=== PATIENT | male | born 1975 ===

== ENCOUNTER 2017-09-08 12:29 | Emergency (ER) | payer OTHER ==
[2017-09-08 12:47] VITALS: BP 149/89; PULSE 97; RESP 18; TEMP 98.2; O2SAT 99
--- NOTE | 2017-09-08 13:06 | ED PDOC ---
HPI: General Adult Time Seen by Provider: 09/08/17 12:48 Chief Complaint (Nursing): GI Problem Chief Complaint (Provider): Flu-like symptoms History Per: Patient History/Exam Limitations: no limitations Onset/Duration Of Symptoms: Days (x8 days) Current Symptoms Are (Timing): Still Present Additional Complaint(s): 41 y/o male presents to the emergency department with a complaint of a fever, nausea, abdominal pain, lower back pain, runny nose, dry mouth, and a mild cough x8 days. Patient describes he feeling "something walking around in his mouth and ears." Reports taking Theraflu for 3-4 days and 400 mg of Advil about 45 minutes prior to arrival. Denies diarrhea or vomiting. PMD: Dr. Sue Vazquez MD Past Medical History Reviewed: Historical Data, Nursing Documentation, Vital Signs Vital Signs: Last Vital Signs Temp 98.2 F 09/08/17 12:45 Pulse 97 H 09/08/17 12:45 Resp 18 09/08/17 12:45 BP 149/89 09/08/17 12:45 Pulse Ox 99 09/08/17 13:38 - Medical History PMH: Anxiety, Bipolar Disorder, Depression, Schizophrenia Denies: Diabetes, Hepatitis, HIV, HTN, Chronic Kidney Disease, Seizures, Sexually Transmitted Disease - Surgical History Surgical History: Tonsillectomy - Family History Family History: States: Unknown Family Hx - Social History Current smoker - smoking cessation education provided: Yes (Heavy Smoker > 10 Cigarettes Daily) Alcohol: None Drugs: Denies - Home Medications Home Medications: Ambulatory Orders Medication Instructions Recorded Clonazepam 1 mg PO BID PRN 03/15/15 Eszopiclone [Lunesta] 3 mg PO HS 03/15/15 OLANZapine [ZyPREXA] 10 mg PO HS 03/15/15 chlorproMAZINE [chlorPROMAZINE HCL] 50 mg PO BID 03/15/15 Famotidine [Pepcid] 20 mg PO Q12 #20 tab 04/09/15 Ibuprofen [Motrin] 600 mg PO Q6 #20 tab 09/08/17 Oseltamivir [Tamiflu] 75 mg PO BID 5 Days cap 09/08/17 - Allergies Allergies/Adverse Reactions: Allergies Allergy/AdvReac Type Severity Reaction Status Date / Time divalproex sodium Allergy RASH Verified 11/01/16 10:49 [From Depakote] haloperidol [From Haldol] Allergy RASH Verified 11/01/16 10:49 haloperidol lactate Allergy RASH Verified 11/01/16 10:49 [From Haldol] paliperidone [From Invega] Allergy SHORTNESS Verified 11/01/16 10:49 OF BREATH risperidone [From Risperdal] Allergy RASH Verified 11/01/16 10:49 Review of Systems ROS Statement: Except As Marked, All Systems Reviewed And Found Negative (As per HPI, otherwise negative) Constitutional: Positive for: Fever, Other (Body aches) ENT: Positive for: Nose Discharge, Other (Dry mouth) Respiratory: Positive for: Cough (Mild) Gastrointestinal: Positive for: Nausea, Abdominal Pain. Negative for: Vomiting , Diarrhea Musculoskeletal: Positive for: Back Pain Physical Exam - Reviewed Nursing Documentation Reviewed: Yes Vital Signs Reviewed: Yes - Physical Exam Appears: Positive for: Non-toxic, No Acute Distress Head Exam: Positive for: ATRAUMATIC, NORMAL INSPECTION, NORMOCEPHALIC Skin: Positive for: Normal Color, Warm, Dry ENT: Positive for: Pharyngeal Erythema (Mild). Negative for: Normal ENT Inspection, Tonsillar Exudate, Tonsillar Swelling Cardiovascular/Chest: Positive for: Regular Rate, Rhythm. Negative for: Murmur Respiratory: Positive for: Normal Breath Sounds. Negative for: Accessory Muscle Use, Respiratory Distress Neurologic/Psych: Positive for: Alert, Oriented (x3) - ECG O2 Sat by Pulse Oximetry: 99 (RA) Pulse Ox Interpretation: Normal Medical Decision Making Medical Decision Making: Time: 1300 Initial impression: Flu-like symptoms. Upper Respiratory Infection (URI) Initial plan: --Evaluation Time: 1338 Patient is medically stable, and requires no further treatment in the ED at this time. Patient will be discharged home with Rx for Motrin 600 mg and Tamiflu 75 mg. Counseling was provided and all questions were answered regarding diagnosis and need for follow up with primary care doctor. There is agreement to discharge plan. Return if symptoms persist or worsen. Clinical Impression: Upper Respiratory Infection (URI) and Flu-Like symptoms Scribe Attestation: Documented by Nelida Hilton, acting as a scribe for Trena Dodge PA-C Provider Scribe Attestation: All medical record entries made by the Scribe were at my direction and personally dictated by me. I have reviewed the chart and agree that the record accurately reflects my personal performance of the history, physical exam, medical decision making, and the department course for this patient. I have also personally directed, reviewed, and agree with the discharge instructions and disposition. Disposition - Clinical Impression Clinical Impression: Upper respiratory infection, Flu-like symptoms - Patient ED Disposition Is Patient to be Admitted: No Counseled Patient/Family Regarding: Diagnosis, Need For Followup, Rx Given - Disposition Disposition: Routine/Home Disposition Time: 13:38 Condition: STABLE Prescriptions: Ibuprofen [Motrin] 600 mg PO Q6 #20 tab Oseltamivir [Tamiflu] 75 mg PO BID 5 Days cap Instructions: Upper Respiratory Infection (ED) Forms: [employer] (Nicaraguan)
== END 2017-09-08 13:39 | disposition home or self-care (01) ==
LOC: H.ER 12:29
DX: J06.9 Acute upper respiratory infection, unspecified (principal); R10.9 Unspecified abdominal pain; F17.210 Nicotine dependence, cigarettes, uncomplicated; F20.9 Schizophrenia, unspecified; F31.9 Bipolar disorder, unspecified; F41.9 Anxiety disorder, unspecified

== ENCOUNTER 2017-09-23 10:43 | Emergency (ER) | payer OTHER ==
[2017-09-23 10:52] VITALS: BMI 28.8
[2017-09-23 10:53] VITALS: BP 133/87; TEMP 98.2
--- NOTE | 2017-09-23 11:30 | ED PDOC ---
HPI: General Adult Time Seen by Provider: 09/23/17 11:02 Chief Complaint (Provider): Testicular Pain History Per: Patient History/Exam Limitations: no limitations Onset/Duration Of Symptoms: Other (x 1 month) Current Symptoms Are (Timing): Still Present Additional Complaint(s): Ash is a 42 year old male, with a past medical history of schizophrenia, who presents to the emergency department with right testicular pain associated with "blood blisters on scrotum" for 1 month. Patient states he had aggressive unprotected sex 1 month ago. Denies any dysuria, discharge or abdominal pain. PMD: Provider TBD Past Medical History Reviewed: Historical Data, Nursing Documentation, Vital Signs Vital Signs: Last Vital Signs Temp 98.2 F 09/23/17 10:52 Pulse 110 H 09/23/17 10:52 Resp 20 09/23/17 10:52 BP 133/87 09/23/17 10:52 Pulse Ox 97 09/23/17 11:36 - Medical History PMH: Anxiety, Bipolar Disorder, Depression, Schizophrenia Denies: Diabetes, Hepatitis, HIV, HTN, Chronic Kidney Disease, Seizures, Sexually Transmitted Disease - Surgical History Surgical History: Tonsillectomy - Family History Family History: States: Unknown Family Hx - Home Medications Home Medications: Ambulatory Orders Medication Instructions Recorded Clonazepam 1 mg PO BID PRN 03/15/15 Eszopiclone [Lunesta] 3 mg PO HS 03/15/15 OLANZapine [ZyPREXA] 10 mg PO HS 03/15/15 chlorproMAZINE [chlorPROMAZINE HCL] 50 mg PO BID 03/15/15 Famotidine [Pepcid] 20 mg PO Q12 #20 tab 04/09/15 Ibuprofen [Motrin] 600 mg PO Q6 #20 tab 09/08/17 Oseltamivir [Tamiflu] 75 mg PO BID 5 Days cap 09/08/17 Naproxen [Naprosyn] 500 mg PO Q12H #20 tab 09/23/17 - Allergies Allergies/Adverse Reactions: Allergies Allergy/AdvReac Type Severity Reaction Status Date / Time divalproex sodium Allergy RASH Verified 11/01/16 10:49 [From Depakote] haloperidol [From Haldol] Allergy RASH Verified 11/01/16 10:49 haloperidol lactate Allergy RASH Verified 11/01/16 10:49 [From Haldol] paliperidone [From Invega] Allergy SHORTNESS Verified 11/01/16 10:49 OF BREATH risperidone [From Risperdal] Allergy RASH Verified 11/01/16 10:49 Review of Systems ROS Statement: Except As Marked, All Systems Reviewed And Found Negative Gastrointestinal: Negative for: Abdominal Pain Genitourinary Male: Positive for: Scrotal Pain (Right). Negative for: Dysuria, Penile Discharge Physical Exam - Reviewed Nursing Documentation Reviewed: Yes Vital Signs Reviewed: Yes - Physical Exam Gastrointestinal/Abdominal: Positive for: Soft. Negative for: Tenderness, Distended Male Genital Exam: Negative for: normal genitalia ( (+): scrotum with superficial hemangioma, non-tender, no masses), lesions (Penile), urethral discharge - ECG O2 Sat by Pulse Oximetry: 97 (RA) Pulse Ox Interpretation: Normal Disposition - Clinical Impression Clinical Impression: Hydrocele of testis - Patient ED Disposition Is Patient to be Admitted: No - Disposition Referrals: Arturo Morrison Jr., MD [Staff Provider] - Disposition: Routine/Home Disposition Time: 14:21 Condition: FAIR Prescriptions: Naproxen [Naprosyn] 500 mg PO Q12H #20 tab Instructions: Hydrocele (ED)
[2017-09-23 11:39] LABS: SQUAMOUS EPITHIAL < 1 /hpf (0-5); URINE BILIRUBIN NEGATIVE (NEGATIVE); URINE BLOOD NEGATIVE (NEGATIVE); URINE CLARITY CLEAR (Clear); URINE COLOR STRAW (YELLOW); URINE GLUCOSE (UA) NEG (Normal); URINE LEUKOCYTE ESTERASE NEG Leu/uL (Negative); URINE NITRATE NEGATIVE (NEGATIVE); URINE PROTEIN NEGATIVE (NEGATIVE); URINE UROBILINOGEN 0.2-1.0 mg/dL (0.2-1.0)
--- NOTE | 2017-09-23 14:09 | US ---
HISTORY: right testicular pain TECHNIQUE: Realtime sonography through the scrotum with color and doppler flow. COMPARISON: None Available. FINDINGS: RIGHT TESTICLE: Measures 5.1 x 3.1 x 2.0 cm cm. Normal echotexture and flow. RIGHT EPIDIDYMIS: Epididymal head measures 9 x 11 x 7 mm cm. Grossly unremarkable appearance with normal flow. LEFT TESTICLE: Measures 4.6 x 2.9 x 1.9 cm cm. Normal echotexture and flow. LEFT EPIDIDYMIS: Epididymal head measures 9 x 7 x 7 mm cm. Grossly unremarkable appearance with normal flow. HYDROCELE: Trace asymmetrical right hydrocele fluid present VARICOCELE: None. OTHER FINDINGS: None. IMPRESSION: No intratesticular masses. Normal flow to both testicles. Trace asymmetrical right hydrocele fluid. Otherwise unremarkable exam
[2017-09-23 14:43] VITALS: PULSE 78; RESP 16; O2SAT 94
== END 2017-09-23 14:42 | disposition home or self-care (01) ==
LOC: H.ER 10:43
DX: N43.3 Hydrocele, unspecified (principal); F20.9 Schizophrenia, unspecified; F31.9 Bipolar disorder, unspecified; F41.9 Anxiety disorder, unspecified

== ENCOUNTER 2017-11-02 13:14 | Emergency (ER) | payer OTHER ==
[2017-11-02 13:14] VITALS: BMI 28.8
[2017-11-02 13:42] VITALS: BP 143/87; PULSE 102; RESP 18; TEMP 98.4; O2SAT 98
--- NOTE | 2017-11-02 14:24 | ED PDOC ---
Syncope/Near Syncope/Dizziness Time Seen by Provider: 11/02/17 13:44 Chief Complaint (Nursing): Dizziness/Lightheaded History Per: Patient History/Exam Limitations: no limitations Onset/Duration Of Symptoms: Hrs (4) Activity At Onset Of Symptoms: Standing Associated Symptoms Preceding Syncopal Episode: No Predromal Symptoms (Sudden Onset), Lightheadedness Seizure Or Post-ictal Symptoms: None Fall Associated With With Symptoms: Yes Additional Complaint(s): 41 yo ,m, PMHx/o Anxiety, Bipolar Disorder, Depression, and Schizophrenia presents to ED c/o dizziness and lightheadedness started 1 month ago, daily during the last week, and today in the morning had dizziness while bending on the vending machine to pick something and patient fell and hit his right knee. He reports preceding symptoms only dizziness. Denies syncope, chest pain, SOB, palpitation, n,v,abd pain, diarrhea,numbness, paresthesia. He reports 1 episode of syncope at home 7 days ago, witnessed by his roomate, lasting 1-2 min, w/o subsequent symptoms of confusion, weakness or slurred speech Patient also reports chronic dry cough for the last 4 weeks, associated with runny nose and reports feeling hot, but not sure if fever. He also reports unprotected sexual intercourse 4 weeks ago and he is worry about HIV infection . He denies urethral discharge, dysuria, hematuria. Pt reports allergies to multiple psyq medications ( tremor as reaction). Patient taking CLorpromazine 100 mg BID, Klonopin 2 mg bedtime. Past Medical History Vital Signs: Last Vital Signs Temp 98.4 F 11/02/17 13:39 Pulse 102 H 11/02/17 13:39 Resp 18 11/02/17 13:39 BP 143/87 11/02/17 13:39 Pulse Ox 98 11/02/17 13:39 - Medical History PMH: Anxiety, Bipolar Disorder, Depression, Schizophrenia Denies: Diabetes, Hepatitis, HIV, HTN, Chronic Kidney Disease, Seizures, Sexually Transmitted Disease - Surgical History Surgical History: Tonsillectomy - Family History Family History: States: Unknown Family Hx - Home Medications Home Medications: Ambulatory Orders Medication Instructions Recorded Clonazepam 1 mg PO BID PRN 03/15/15 Eszopiclone [Lunesta] 3 mg PO HS 03/15/15 OLANZapine [ZyPREXA] 10 mg PO HS 03/15/15 chlorproMAZINE [chlorPROMAZINE HCL] 50 mg PO BID 03/15/15 Famotidine [Pepcid] 20 mg PO Q12 #20 tab 04/09/15 Ibuprofen [Motrin] 600 mg PO Q6 #20 tab 09/08/17 Oseltamivir [Tamiflu] 75 mg PO BID 5 Days cap 09/08/17 Naproxen [Naprosyn] 500 mg PO Q12H #20 tab 09/23/17 - Allergies Allergies/Adverse Reactions: Allergies Allergy/AdvReac Type Severity Reaction Status Date / Time divalproex sodium Allergy RASH Verified 11/01/16 10:49 [From Depakote] haloperidol [From Haldol] Allergy RASH Verified 11/01/16 10:49 haloperidol lactate Allergy RASH Verified 11/01/16 10:49 [From Haldol] paliperidone [From Invega] Allergy SHORTNESS Verified 11/01/16 10:49 OF BREATH risperidone [From Risperdal] Allergy RASH Verified 11/01/16 10:49 Physical Exam - Physical Exam Appears: Positive for: No Acute Distress Head Exam: Positive for: ATRAUMATIC, NORMOCEPHALIC Skin: Positive for: Normal Color Eye Exam: Positive for: Normal appearance, EOMI. Negative for: Nystagmus Neck: Positive for: Normal Cardiovascular/Chest: Positive for: Regular Rate, Rhythm. Negative for: Murmur Respiratory: Positive for: Decreased Breath Sounds (bibasal diminished breath sound ). Negative for: Crackles, Rales Gastrointestinal/Abdominal: Positive for: Bowel Sounds (normal ), Soft. Negative for: Tenderness, Distended, Guarding, Rebound Back: Positive for: Normal Inspection Extremity: Positive for: Normal ROM. Negative for: Tenderness, Pedal Edema DTR - Knee (R): 2+ DTR - Knee (L): 2+ Neurologic/Psych: Positive for: Alert, Oriented, Other (4 ext muscle strenght 5/ 5 ) - Laboratory Results Result Diagrams: 11/02/17 15:10 11/02/17 15:10 - ECG O2 Sat by Pulse Oximetry: 98 Medical Decision Making Medical Decision Makin: 20 Initial impression Dizziness. Near Syncope. URI Unprotected sexual intercourse May be associated with ortho hypotension secondary to psyq meds, lytes imbalance Deferential : cardiac arrythmia, TIA, Dehydration. Plan Labs: CBC, CMP, Mg,Phosp, UA,Gc/Chlam, urine tox Imaging: Ct head, EKG, CXR, CXR 14:53 Im notified that patient eloped. nurse did not find patient in the room. unable to reach patient by phone. Disposition - Clinical Impression Clinical Impression: Dizziness - Disposition Disposition: Eloped Disposition Time: 16:49 Condition: FAIR Forms: [employer] (Eritrean)
--- NOTE | 2017-11-02 15:06 | CT ---
PROCEDURE: CT HEAD WITHOUT CONTRAST. HISTORY: dizziness headache syncope COMPARISON: None available. TECHNIQUE: Axial computed tomography images were obtained through the head/brain without intravenous contrast. Radiation dose: Total exam DLP = 864.21 mGy-cm. This CT exam was performed using one or more of the following dose reduction techniques: Automated exposure control, adjustment of the mA and/or kV according to patient size, and/or use of iterative reconstruction technique. FINDINGS: HEMORRHAGE: No intracranial hemorrhage. BRAIN: Normal owens-white matter differentiation and density are appreciated throughout the cerebrum and cerebellum with the brainstem appearing unremarkable as well. There is no mass effect. There is no suspicious extra-axial fluid collection and the midline brain anatomy appears diffusely unremarkable. VENTRICLES: Unremarkable. No hydrocephalus. CALVARIUM: Unremarkable. PARANASAL SINUSES: Unremarkable as visualized. No significant inflammatory changes. MASTOID AIR CELLS: Unremarkable as visualized. No inflammatory changes. OTHER FINDINGS: None. IMPRESSION: Unremarkable unenhanced CT of the Head. Follow-up CT or MRI are available if clinically warranted.
[2017-11-02 15:18] LABS: BASO # 0.2 K/uL (0.0-0.2); BASO % 1.1 % (0.0-2.0); EOS # 0.3 K/uL (0.0-0.7); EOS % 1.8 % (0.0-4.0); HEMOGLOBIN 14.1 g/dL (12.0-18.0); LYMPH # 2.9 K/uL (1.0-4.3); LYMPH % 19.9 % (20.0-40.0); MEAN CELL VOLUME 87.3 fl (80.0-94.0); MEAN CORPUSCULAR HGB CONC 33.2 g/dL (33.0-37.0); MEAN PLATELET VOLUME 9.3 fl (7.2-11.7); MONO # 0.8 K/uL (0.0-0.8); MONO % 5.2 % (0.0-10.0); NEUT # 10.6 K/uL (1.8-7.0); NRBC % 0.1 % (0.0-0.0); RBC 4.88 Mil/uL (4.40-5.90); RED CELL DISTRIBUTION WIDTH 14.8 % (11.5-14.5); WHITE BLOOD COUNT 14.7 K/uL (4.8-10.8)
[2017-11-02 15:37] LABS: ALB/GLOB RATIO 1.3 (1.0-2.1); ALT/SGPT 31 U/L (21-72); AST/SGOT 21 U/L (17-59); BLOOD UREA NITROGEN 14 mg/dl (9-20); CALCIUM 9.5 mg/dL (8.4-10.2); GFR AFRICAN-AMERICAN > 60; GFR NON-AFRICAN AMERICAN > 60
[2017-11-02 16:12] LABS: BARBITURATES, UR NEGATIVE (NEGATIVE); BENZODIAZEPINES, UR NEGATIVE (NEGATIVE); OPIATES, UR NEGATIVE (NEGATIVE); PHENCYCLIDINE, UR NEGATIVE (NEGATIVE)
--- NOTE | 2017-11-04 03:08 | CARD ---
APPROVED REPORT EKG Measurement Heart [id number] ID [id number] <Conclusion> Normal sinus rhythm Normal ECG
== END 2017-11-02 16:49 | disposition left against medical advice (07) ==
LOC: H.ER 13:14
DX: R42 Dizziness and giddiness (principal); F41.9 Anxiety disorder, unspecified; F20.9 Schizophrenia, unspecified; F31.9 Bipolar disorder, unspecified

== ENCOUNTER 2017-11-08 18:26 | Emergency (ER) | payer OTHER ==
[2017-11-08 18:26] VITALS: BMI 28.8
[2017-11-08 19:21] LABS: BASO # 0.2 K/uL (0.0-0.2); BASO % 1.3 % (0.0-2.0); EOS # 0.2 K/uL (0.0-0.7); EOS % 1.6 % (0.0-4.0); HEMOGLOBIN 14.9 g/dL (12.0-18.0); LYMPH # 3.3 K/uL (1.0-4.3); LYMPH % 22.4 % (20.0-40.0); MEAN CORPUSCULAR HEMOGLOBIN 29.2 pg (27.0-31.0); MEAN CORPUSCULAR HGB CONC 33.6 g/dL (33.0-37.0); MEAN PLATELET VOLUME 8.8 fl (7.2-11.7); MONO % 6.5 % (0.0-10.0); NEUT % 68.2 % (50.0-75.0); RBC 5.1 Mil/uL (4.40-5.90); WHITE BLOOD COUNT 14.6 K/uL (4.8-10.8)
--- NOTE | 2017-11-08 19:50 | ED PDOC ---
HPI: Psych/Substance Abuse Time Seen by Provider: 11/08/17 18:47 Chief Complaint (Nursing): Psychiatric Evaluation History Per: Patient Additional Complaint(s): Patient w/ PMH of bipolar d/o presents for psychiatric evaluation. As per triage the patient has not been sleeping for the past several days. Patient not able to elaborate further onto why he is here. Patient has no other complains. Other psychiatric symptoms: (-) suicidal ideation, (-) homicidal ideation, (-) trauma, (-) fever, (-) headache, (-) dyspnea, (-) vomiting. Past Medical History Vital Signs: Last Vital Signs Temp 98.1 F 11/08/17 18:30 Pulse 102 H 11/08/17 18:55 Resp 14 11/08/17 18:55 BP 137/80 11/08/17 18:55 Pulse Ox 95 11/08/17 18:55 - Medical History PMH: Anxiety, Bipolar Disorder, Depression, Schizophrenia Denies: Diabetes, Hepatitis, HIV, HTN, Chronic Kidney Disease, Seizures, Sexually Transmitted Disease - Surgical History Surgical History: Tonsillectomy - Family History Family History: States: Unknown Family Hx - Immunization History Hx Tetanus Toxoid Vaccination: No Hx Influenza Vaccination: No Hx Pneumococcal Vaccination: No - Home Medications Home Medications: Ambulatory Orders Medication Instructions Recorded Clonazepam 1 mg PO BID PRN 03/15/15 Eszopiclone [Lunesta] 3 mg PO HS 03/15/15 OLANZapine [ZyPREXA] 10 mg PO HS 03/15/15 chlorproMAZINE [chlorPROMAZINE HCL] 50 mg PO BID 03/15/15 Famotidine [Pepcid] 20 mg PO Q12 #20 tab 04/09/15 Ibuprofen [Motrin] 600 mg PO Q6 #20 tab 09/08/17 Oseltamivir [Tamiflu] 75 mg PO BID 5 Days cap 09/08/17 Naproxen [Naprosyn] 500 mg PO Q12H #20 tab 09/23/17 - Allergies Allergies/Adverse Reactions: Allergies Allergy/AdvReac Type Severity Reaction Status Date / Time divalproex sodium Allergy RASH Verified 11/01/16 10:49 [From Depakote] haloperidol [From Haldol] Allergy RASH Verified 11/01/16 10:49 haloperidol lactate Allergy RASH Verified 11/01/16 10:49 [From Haldol] paliperidone [From Invega] Allergy SHORTNESS Verified 11/01/16 10:49 OF BREATH risperidone [From Risperdal] Allergy RASH Verified 11/01/16 10:49 Review of Systems Constitutional: Negative for: Fever, Malaise Cardiovascular: Negative for: Chest Pain, Palpitations Respiratory: Negative for: Cough, Shortness of Breath Gastrointestinal: Negative for: Vomiting, Abdominal Pain Genitourinary Male: Negative for: Dysuria, Frequency Skin: Negative for: Rash, Lesions Physical Exam - Physical Exam Comments: GENERALIZED APPEARANCE: Patient is AAO x 3, in no acute distress. SKIN: Warm, dry; (-) cyanosis. HEAD: (-) scalp swelling, (-) scalp tenderness. EYES: (-) conjunctival pallor, (-) scleral icterus, (-) nystagmus. ENMT: Mucous membranes moist. Airway patent: (-) stridor. NECK: (-) tenderness, (-) stiffness, (-) lymphadenopathy. CHEST AND RESPIRATORY: (-) rales, (-) rhonchi, (-) wheezes; breath sounds equal bilaterally. HEART AND CARDIOVASCULAR: (-) irregularity; (-) murmur, (-) gallop. ABDOMEN AND GI: Soft; (-) tenderness. EXTREMITIES: (-) deformity. NEURO AND PSYCH: Mental status as above, oriented x3, (-) apparent hallucinations or delusions, (+) flight of ideas. Affect: flat. Memory: unable to test. 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 Strength: Symmetric. - Laboratory Results Result Diagrams: 11/08/17 19:18 - ECG O2 Sat by Pulse Oximetry: 95 Medical Decision Making Medical Decision Making: Plan : - Labs - EKG - CXR - Crisis eval - 1 to 1 & 4 point restraints ordered as the patient was aggressive in triage EKG : ST at 107 bpm, no acute ST changes, as read by JOE. CXR : NAD, as read by JOE. Rest of the labs still pending. Case endorsed to JOE Erwin at 1999 pending medical clearance and crisis evaluation. Disposition - Clinical Impression Clinical Impression: Bipolar disorder - Patient ED Disposition Is Patient to be Admitted: Transfer of Care (Case endorsed to JOE Erwin at 1999 pending medical clearance and crisis evaluation.) - Disposition Referrals: Provider TBD, [Primary Care Provider] - Disposition Time: 20:00 Condition: UNKNOWN - PA / SKETCH MAKER / Resident Statement MD/DO has reviewed & agrees with the documentation as recorded.
[2017-11-08 19:56] LABS: ALB/GLOB RATIO 1.2 (1.0-2.1); ALBUMIN 4.1 g/dL (3.5-5.0); ALT/SGPT 24 U/L (21-72); AST/SGOT 19 U/L (17-59); BLOOD UREA NITROGEN 17 mg/dl (9-20); CALCIUM 9.7 mg/dL (8.4-10.2); GFR AFRICAN-AMERICAN > 60; GFR NON-AFRICAN AMERICAN > 60
--- NOTE | 2017-11-08 20:25 | ED PDOC ---
- Laboratory Results Result Diagrams: 11/08/17 19:18 11/08/17 19:18 - ECG O2 Sat by Pulse Oximetry: 95 - Progress ED Course And Treament: 1999 Signed out to me pending crisis dispo 2023 On my intial evaluation, pt. in no distress. Sleeping comfortably. workers' compensation mediator: SR at [address]-T wave changes. UA, drug screen pending. Informed RN to remove restraints. 2139 On re-evaluation, pt. alert and awake. Pt. offers no complaints but with flight of ideas. Denies SI/HI, hallucinations. Pending urine. 138 Pt. has not urinated. Straight cath specimen ordered. 224 UA normal. Abd soft and non-tender to deep palpation. Patient is medically cleared for [facility] evaluation. Disposition - Clinical Impression Clinical Impression: Bipolar disorder - POA Present On Arrival: None - Disposition Referrals: Provider TBJose Guadalupe, [Primary Care Provider] - Disposition: Transfer of Care (Dr. Parker continued care at the end of PA's shift at 0600) Disposition Time: 06:00 Condition: STABLE Forms: [employer] (Afghan) Print Language: POLISH
[2017-11-09 02:36] LABS: URINE BILIRUBIN NEGATIVE (NEGATIVE); URINE BLOOD NEGATIVE (NEGATIVE); URINE CLARITY SLIGHTY-CLOUDY (Clear); URINE COLOR YELLOW (YELLOW); URINE GLUCOSE (UA) NEG (Normal); URINE LEUKOCYTE ESTERASE NEG Leu/uL (Negative); URINE NITRATE NEGATIVE (NEGATIVE); URINE PROTEIN NEGATIVE (NEGATIVE); URINE UROBILINOGEN 0.2-1.0 mg/dL (0.2-1.0)
[2017-11-09 03:26] LABS: BENZODIAZEPINES, UR NEGATIVE (NEGATIVE)
[2017-11-09 03:45] LABS: BARBITURATES, UR NEGATIVE (NEGATIVE); OPIATES, UR NEGATIVE (NEGATIVE); PHENCYCLIDINE, UR NEGATIVE (NEGATIVE)
--- NOTE | 2017-11-09 06:12 | ED PDOC ---
- Laboratory Results Result Diagrams: 11/08/17 19:18 11/08/17 19:18 - ECG O2 Sat by Pulse Oximetry: 95 Medical Decision Making Medical Decision Making: Time: 06:00 Patient is signed over to me by JOE Erwin pending [place] evaluation. Time: 07:00 Patient will be signed over to Dr. Mccloud, pending [place] evaluation. Scribe Attestation: Documented by Shannon Nava acting as a scribe for Sherrie Parker MD. Scribe Attestation: All medical record entries made by the Scribe were at my direction and personally dictated by me. I have reviewed the chart and agree that the record accurately reflects my personal performance of the history, physical exam, medical decision making, and the department course for this patient. I have also personally directed, reviewed, and agree with the discharge instructions and disposition. Disposition - Clinical Impression Clinical Impression: Bipolar disorder - Disposition Referrals: Provider SOURAV, [Primary Care Provider] - Disposition: Transfer of Care Disposition Time: 07:00 Condition: STABLE Forms: [employer] (Sierra Leonean) Print Language: SLOV[place] Patient Signed Over To: Mel Mccloud
--- NOTE | 2017-11-09 07:11 | ED PDOC ---
- Laboratory Results Result Diagrams: 11/08/17 19:18 11/08/17 19:18 - ECG O2 Sat by Pulse Oximetry: 95 (RA) Medical Decision Making Medical Decision Making: Time: 07:00 Patient signed out to me by Dr. Parker, pending [place] evaluation. Patient was accepted to [place] at 07:00. Face to face with Dr. Holman at noon. Patient is resting comfortably as of 16:43. Scribe Attestation: Documented by Keven Duff, acting as a scribe for Mel Mccloud MD. Provider Scribe Attestation: All medical record entries made by the Scribe were at my direction and personally dictated by me. I have reviewed the chart and agree that the record accurately reflects my personal performance of the history, physical exam, medical decision making, and the department course for this patient. I have also personally directed, reviewed, and agree with the discharge instructions and disposition. Disposition - Clinical Impression Clinical Impression: Bipolar disorder - POA Present On Arrival: None - Disposition Referrals: Provider SOURAV, [Primary Care Provider] - Disposition: Other Institution Disposition Time: 13:28 Condition: STABLE Forms: [employer] (American) Print Language: MALAYSIAN
--- NOTE | 2017-11-09 07:50 | RAD ---
PROCEDURE: CHEST RADIOGRAPH, 1 VIEW HISTORY: psych eval COMPARISON: Portable chest 11/13/2016. FINDINGS: LUNGS: No infiltrate seen at the right hemithorax however the left hemidiaphragm is not clearly defined and left basilar atelectasis or infiltrate is not completely excluded. PLEURA: No pneumothorax or pleural fluid seen. CARDIOVASCULAR: Normal. OSSEOUS STRUCTURES: No significant abnormalities. VISUALIZED UPPER ABDOMEN: Normal. OTHER FINDINGS: None. IMPRESSION: Silhouetting of the left hemidiaphragm is identified suspicious for potential interval atelectasis or infiltrate at the left base. Clinically correlate further. Consider repeat radiography with patient in full suspended inspiration.
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
--- NOTE | 2017-11-09 19:11 | CARD ---
APPROVED REPORT EKG Measurement Heart [id number] <Conclusion> Sinus tachycardia Otherwise normal ECG
--- NOTE | 2017-11-09 19:40 | ED PDOC ---
- Laboratory Results Result Diagrams: 11/08/17 19:18 11/08/17 19:18 - ECG O2 Sat by Pulse Oximetry: 98 (RA) Pulse Ox Interpretation: Normal Medical Decision Making Medical Decision Making: Time: 17:00 Patient signed out to me by Dr. Mccloud. Clinical Impression: Bipolar Disorder Patient was accepted and admitted to [facility] for schizophrenia. Time:19:00 Patient to be signed out to Dr. Amin pending bed availability at [facility]. Documented by Janak Espinoza acting as a scribe for Mel Mccloud MD. All medical record entries made by the Scribe were at my direction and personally dictated by me. I have reviewed the chart and agree that the record accurately reflects my personal performance of the history, physical exam, medical decision making, and the department course for this patient. I have also personally directed, reviewed, and agree with the discharge instructions and disposition. Disposition - Clinical Impression Clinical Impression: Bipolar disorder - POA Present On Arrival: None - Disposition Referrals: Provider SOURAV, [Primary Care Provider] - Disposition: Transfer of Care Disposition Time: 19:00 Condition: STABLE Forms: [employer] (Tamazight) Print Language: ROMANIAN
--- NOTE | 2017-11-09 19:45 | ED PDOC ---
- Laboratory Results Result Diagrams: 11/08/17 19:18 11/08/17 19:18 - ECG O2 Sat by Pulse Oximetry: 98 (RA) Pulse Ox Interpretation: Normal Medical Decision Making Medical Decision Making: Time: 19:00 Patient signed out to me by Dr. Watson pending bed availability at [facility]. 0700 Patient will be signed out to Dr. Parker pending bed availability at [facility]. Patient condition remains stable. Documented by Janak Espinoza and Gi Hudson acting as a scribe for Magno Amin MD. All medical record entries made by the Scribe were at my direction and personally dictated by me. I have reviewed the chart and agree that the record accurately reflects my personal performance of the history, physical exam, medical decision making, and the department course for this patient. I have also personally directed, reviewed, and agree with the discharge instructions and disposition. Disposition - Clinical Impression Clinical Impression: Bipolar disorder - POA Present On Arrival: None - Disposition Referrals: Provider TBD, [Primary Care Provider] - Disposition: Routine/Home Disposition Time: 07:00 Condition: STABLE Forms: [employer] (Indonesian) Print Language: WOLOF Patient Signed Over To: Sherrie Parker Handoff Comments: pending [facility] bed availability
--- NOTE | 2017-11-10 07:26 | ED PDOC ---
- Laboratory Results Result Diagrams: 11/08/17 19:18 11/08/17 19:18 - ECG O2 Sat by Pulse Oximetry: 98 (RA) Medical Decision Making Medical Decision Making: Time: 07:00 Patient signed out to me by Dr. Amin pending transfer to [facility]. 1200 Pt had bed at [facility] faciliating transfer Scribe Attestation: Documented by Aashish Diaz, acting as a scribe for Sherrie Parker MD. Provider Scribe Attestation: All medical record entries made by the Scribe were at my direction and personally dictated by me. I have reviewed the chart and agree that the record accurately reflects my personal performance of the history, physical exam, medical decision making, and the department course for this patient. I have also personally directed, reviewed, and agree with the discharge instructions and disposition. Disposition - Clinical Impression Clinical Impression: Bipolar disorder - POA Present On Arrival: None - Disposition Referrals: Provider SOURAV, [Primary Care Provider] - Disposition: Other Institution Disposition Time: 12:10 Condition: STABLE Forms: [employer] (Malaysian) Print Language: FINNISH
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
[2017-11-10 12:07] VITALS: PULSE 90; RESP 18; TEMP 98.6
[2017-11-10 15:10] VITALS: BP 117/61
[2017-11-12 09:27] VITALS: O2SAT 95
== END 2017-11-10 13:28 | disposition short-term general hospital (02) ==
LOC: SUPCPDRO 18:26 → H.ER 18:26
DX: F20.9 Schizophrenia, unspecified (principal); F31.9 Bipolar disorder, unspecified; F41.9 Anxiety disorder, unspecified; F17.210 Nicotine dependence, cigarettes, uncomplicated

== ENCOUNTER 2017-12-08 11:20 | Emergency (ER) | payer MEDICAID, OTHER ==
[2017-12-08 11:20] VITALS: BMI 28.8
--- NOTE | 2017-12-08 12:49 | ED PDOC ---
HPI: Psych/Substance Abuse Time Seen by Provider: 12/08/17 12:13 Chief Complaint (Nursing): Psychiatric Evaluation Chief Complaint (Provider): Psychiatric Evaluation History Per: Patient History/Exam Limitations: other (Caveat: Patient is saying nothing is wrong) Onset/Duration Of Symptoms: Other (x today) Additional Complaint(s): Ash is a 42 year old male, with a history of anxiety, gastroenteritis, paranoia and bipolar disorder, who was brought in by police for crisis evaluation after appearing anxious. Patient is sleeping and saying nothing is wrong. PMD: Provider TBD Past Medical History Reviewed: Historical Data, Nursing Documentation, Vital Signs Vital Signs: Last Vital Signs Temp 98 F 12/08/17 12:26 Pulse 93 H 12/08/17 12:26 Resp 20 12/08/17 12:26 BP 133/80 12/08/17 12:26 Pulse Ox 95 12/08/17 12:26 - Medical History PMH: Anxiety, Bipolar Disorder, Depression, Schizophrenia Denies: Diabetes, Hepatitis, HIV, HTN, Chronic Kidney Disease, Seizures, Sexually Transmitted Disease - Surgical History Surgical History: Tonsillectomy - Family History Family History: States: Unknown Family Hx - Immunization History Hx Tetanus Toxoid Vaccination: No Hx Influenza Vaccination: No Hx Pneumococcal Vaccination: No - Home Medications Home Medications: Ambulatory Orders Medication Instructions Recorded Clonazepam 1 mg PO BID PRN 03/15/15 Eszopiclone [Lunesta] 3 mg PO HS 03/15/15 OLANZapine [ZyPREXA] 10 mg PO HS 03/15/15 chlorproMAZINE [chlorPROMAZINE HCL] 50 mg PO BID 03/15/15 Famotidine [Pepcid] 20 mg PO Q12 #20 tab 04/09/15 Ibuprofen [Motrin] 600 mg PO Q6 #20 tab 09/08/17 Oseltamivir [Tamiflu] 75 mg PO BID 5 Days cap 09/08/17 Naproxen [Naprosyn] 500 mg PO Q12H #20 tab 09/23/17 - Allergies Allergies/Adverse Reactions: Allergies Allergy/AdvReac Type Severity Reaction Status Date / Time divalproex sodium Allergy RASH Verified 11/01/16 10:49 [From Depakote] haloperidol [From Haldol] Allergy RASH Verified 11/01/16 10:49 haloperidol lactate Allergy RASH Verified 11/01/16 10:49 [From Haldol] paliperidone [From Invega] Allergy SHORTNESS Verified 11/01/16 10:49 OF BREATH risperidone [From Risperdal] Allergy RASH Verified 11/01/16 10:49 Review of Systems Review Of Systems: ROS cannot be obtained secondary to pt's inabilty to answer questions. (Caveat: Patient is saying nothing is wrong) Physical Exam - Reviewed Nursing Documentation Reviewed: Yes Vital Signs Reviewed: Yes - Physical Exam Cardiovascular/Chest: Positive for: Regular Rate, Rhythm Respiratory: Positive for: Normal Breath Sounds. Negative for: Respiratory Distress Gastrointestinal/Abdominal: Positive for: Normal Exam, Soft. 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 Apparently, patient was sent by clinic for admission. 18:12 Chest X-Ray: FINDINGS: LUNGS: No active pulmonary disease. An azygous fissure again seen the right apex medially. Mildly elevated right hemidiaphragm. Interval resolution of prior left basilar airspace disease. PLEURA: No significant pleural effusion identified, no pneumothorax apparent. CARDIOVASCULAR: Normal. OSSEOUS STRUCTURES: No significant abnormalities. VISUALIZED UPPER ABDOMEN: Normal. OTHER FINDINGS: None. IMPRESSION: Mildly elevated right hemidiaphragm evident. No interval acute infiltrate or pleural effusion bilaterally. 18:15 Patient is medically cleared. 19:00 Patient is signed out to Dr. Garnica, pending [facility]. Scribe Attestation: Documented by Keven Duff, acting as a scribe for Sherrie Parker MD Provider Scribe Attestation: All medical record entries made by the Scribe were at my direction and personally dictated by me. I have reviewed the chart and agree that the record accurately reflects my personal performance of the history, physical exam, medical decision making, and the department course for this patient. I have also personally directed, reviewed, and agree with the discharge instructions and disposition. Disposition - Disposition Forms: [employer] (Tajik)
[2017-12-08 13:26] LABS: BASO # 0.2 K/uL (0.0-0.2); BASO % 1.4 % (0.0-2.0); EOS # 0.2 K/uL (0.0-0.7); EOS % 1.5 % (0.0-4.0); HEMOGLOBIN 14.7 g/dL (12.0-18.0); LYMPH # 3.1 K/uL (1.0-4.3); LYMPH % 25.6 % (20.0-40.0); MEAN CELL VOLUME 87.8 fl (80.0-94.0); MEAN CORPUSCULAR HEMOGLOBIN 29.7 pg (27.0-31.0); MEAN CORPUSCULAR HGB CONC 33.8 g/dL (33.0-37.0); MEAN PLATELET VOLUME 9.1 fl (7.2-11.7); MONO # 0.7 K/uL (0.0-0.8); MONO % 6.1 % (0.0-10.0); NEUT # 7.9 K/uL (1.8-7.0); NEUT % 65.4 % (50.0-75.0); NRBC % 0.1 % (0.0-0.0); RBC 4.93 Mil/uL (4.40-5.90); RED CELL DISTRIBUTION WIDTH 14.6 % (11.5-14.5); WHITE BLOOD COUNT 12.1 K/uL (4.8-10.8)
[2017-12-08 14:10] LABS: ACETAMINOPHEN < 10.0 ug/ml (10.0-30.0); SALICYLATE < 1.0 mg/dl
[2017-12-08 14:18] LABS: BLOOD UREA NITROGEN 11 mg/dl (9-20); CALCIUM 9.4 mg/dL (8.4-10.2); GFR AFRICAN-AMERICAN > 60; GFR NON-AFRICAN AMERICAN > 60
[2017-12-08 17:21] LABS: SQUAMOUS EPITHIAL < 1 /hpf (0-5); URINE BACTERIA FEW (<OCC); URINE BILIRUBIN NEGATIVE (NEGATIVE); URINE BLOOD NEGATIVE (NEGATIVE); URINE CLARITY SLIGHTY-CLOUDY (Clear); URINE COLOR YELLOW (YELLOW); URINE GLUCOSE (UA) NEG (Normal); URINE LEUKOCYTE ESTERASE NEG Leu/uL (Negative); URINE PROTEIN NEGATIVE (NEGATIVE); URINE UROBILINOGEN 0.2-1.0 mg/dL (0.2-1.0)
[2017-12-08 17:43] LABS: BARBITURATES, UR NEGATIVE (NEGATIVE); BENZODIAZEPINES, UR NEGATIVE (NEGATIVE); OPIATES, UR NEGATIVE (NEGATIVE); PHENCYCLIDINE, UR NEGATIVE (NEGATIVE)
--- NOTE | 2017-12-08 18:13 | RAD ---
HISTORY: clearnce COMPARISON: Portable chest 11/08/2017 FINDINGS: LUNGS: No active pulmonary disease. An azygous fissure again seen the right apex medially. Mildly elevated right hemidiaphragm. Interval resolution of prior left basilar airspace disease. PLEURA: No significant pleural effusion identified, no pneumothorax apparent. CARDIOVASCULAR: Normal. OSSEOUS STRUCTURES: No significant abnormalities. VISUALIZED UPPER ABDOMEN: Normal. OTHER FINDINGS: None. IMPRESSION: Mildly elevated right hemidiaphragm evident. No interval acute infiltrate or pleural effusion bilaterally. .
[2017-12-09] MEDS: Midazolam 2 MG/2 ML VIAL IV ONE (02:39)
--- NOTE | 2017-12-09 05:00 | ED PDOC ---
- Laboratory Results Result Diagrams: 12/08/17 13:10 12/08/17 13:10 - ECG O2 Sat by Pulse Oximetry: 96 Pulse Ox Interpretation: Normal Medical Decision Making Medical Decision MakinPM Patient endorsed to me by Dr. Parker pending eval by [facility], patient has already been medically cleared. 12AM Patient was seen and evaluated by [facility], accepted for admission, however no beds currently availabl.e 0700AM No acute events overnight, patient remains stable, will endorse to day team Dr. Vieira pending bed availability. Disposition - Clinical Impression Clinical Impression: Bipolar disorder - POA Present On Arrival: None - Disposition Disposition: Transfer of Care Disposition Time: 07:00 Condition: STABLE Forms: [employer] (Stateless) Patient Signed Over To: Louann Vieira Handoff Comments: pending bed availabitility at [facility]
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
--- NOTE | 2017-12-09 17:25 | ED PDOC ---
- Laboratory Results Result Diagrams: 12/08/17 13:10 12/08/17 13:10 - ECG O2 Sat by Pulse Oximetry: 96 Medical Decision Making Medical Decision Making: recd from dr nicole at 5pm pending [facility] bed availability. No complaints over course of day per report. Dr Holman psychiatry saw patient in ED. 19:00 Patient will be signed out to Dr. Amin. Pending bed availability at [facility]. Disposition - Clinical Impression Clinical Impression: Bipolar disorder - POA Present On Arrival: None - Disposition Disposition: Transfer of Care Disposition Time: 19:00 Condition: STABLE Forms: [facility] (Haitian) Patient Signed Over To: Magno Amin Handoff Comments: pending [facility] bed
--- NOTE | 2017-12-09 19:45 | CARD ---
APPROVED REPORT EKG Measurement Heart [id number] MD [id number] <Conclusion> Normal sinus rhythm Normal ECG
[2017-12-10 11:24] VITALS: BP 104/60; PULSE 86; TEMP 98.2; O2SAT 97
[2017-12-10 12:09] VITALS: RESP 18
== END 2017-12-10 02:06 | disposition short-term general hospital (02) ==
LOC: H.ER 11:20
DX: F20.9 Schizophrenia, unspecified (principal); F31.9 Bipolar disorder, unspecified; F41.9 Anxiety disorder, unspecified; K52.9 Noninfective gastroenteritis and colitis, unspecified; F17.210 Nicotine dependence, cigarettes, uncomplicated

== ENCOUNTER 2018-01-20 10:48 | Emergency (ER) | payer MEDICAID, OTHER ==
[2018-01-20 10:51] VITALS: TEMP 98.7; BMI 27.4
--- NOTE | 2018-01-20 11:37 | ED PDOC ---
HPI: Psych/Substance Abuse Time Seen by Provider: 01/20/18 10:52 Chief Complaint (Nursing): Psychiatric Evaluation Chief Complaint (Provider): [facility] by [email or web address] for evaluation History Per: Patient, Other History/Exam Limitations: no limitations Additional Complaint(s): 42 yo male with history of bipolar sent by [facility] for evaluation. Pt reports being compliant with seroquel and xanax. PT denies complaint and asking for food. Past Medical History Reviewed: Historical Data, Nursing Documentation, Vital Signs Vital Signs: Last Vital Signs Temp 98.7 F 01/20/18 10:51 Pulse 73 01/20/18 10:51 Resp 17 01/20/18 10:51 BP 132/77 01/20/18 10:51 Pulse Ox 96 01/20/18 10:51 - Medical History PMH: Anxiety, Bipolar Disorder, Depression, Schizophrenia Denies: Diabetes, Hepatitis, HIV, HTN, Chronic Kidney Disease, Seizures, Sexually Transmitted Disease - Surgical History Surgical History: Tonsillectomy - Family History Family History: States: Unknown Family Hx - Living Arrangements Living Arrangements: Other - Social History Current smoker - smoking cessation education provided: Yes Alcohol: None Drugs: Denies - Immunization History Hx Tetanus Toxoid Vaccination: No Hx Influenza Vaccination: No Hx Pneumococcal Vaccination: No - Home Medications Home Medications: Ambulatory Orders Medication Instructions Recorded Clonazepam [Klonopin] 2 mg PO HS 12/09/17 QUEtiapine [Seroquel] 100 mg PO HS 12/09/17 - Allergies Allergies/Adverse Reactions: Allergies Allergy/AdvReac Type Severity Reaction Status Date / Time divalproex sodium Allergy RASH Verified 01/20/18 11:02 [From Depakote] haloperidol [From Haldol] Allergy RASH Verified 01/20/18 11:02 haloperidol lactate Allergy RASH Verified 01/20/18 11:02 [From Haldol] paliperidone [From Invega] Allergy SHORTNESS Verified 01/20/18 11:02 OF BREATH risperidone [From Risperdal] Allergy RASH Verified 01/20/18 11:02 Review of Systems ROS Statement: Except As Marked, All Systems Reviewed And Found Negative Constitutional: Negative for: Fever, Chills Respiratory: Positive for: Cough. Negative for: Shortness of Breath Gastrointestinal: Negative for: Nausea, Vomiting, Abdominal Pain Genitourinary Male: Negative for: Dysuria Psych: Negative for: Psychosis, Suicidal ideation Physical Exam - Reviewed Nursing Documentation Reviewed: Yes Vital Signs Reviewed: Yes - Physical Exam Appears: Positive for: Well, Non-toxic, No Acute Distress Head Exam: Positive for: ATRAUMATIC, NORMAL INSPECTION, NORMOCEPHALIC Skin: Positive for: Normal Color, Warm, DRY Eye Exam: Positive for: Normal appearance ENT: Positive for: Normal ENT Inspection Neck: Positive for: Normal, Painless ROM Cardiovascular/Chest: Positive for: Regular Rate, Rhythm Respiratory: Positive for: CNT, Normal Breath Sounds Gastrointestinal/Abdominal: Positive for: Normal Exam, Soft Back: Positive for: Normal Inspection Extremity: Positive for: Normal ROM Neurologic/Psych: Positive for: Alert, Oriented - Laboratory Results Result Diagrams: 01/20/18 14:10 01/20/18 14:10 - ECG O2 Sat by Pulse Oximetry: 96 Medical Decision Making Medical Decision Makin - Notified by load out worker that patient is going to be referred to [facility] for [place]. Labs normal. Urine normal. CXR without acute cardiopulmonary disease. Pt ate lunch and dinner in ER. PT calm after ativan. PT medically stable for evaluation by [facility]. Endorsed to [facility] at 1999. Disposition - Clinical Impression Clinical Impression: Encounter for psychiatric assessment - Patient ED Disposition Is Patient to be Admitted: Transfer of Care - Disposition Disposition: Transfer of Care Disposition Time: 20:00 Condition: STABLE Forms: [facility] (Belarusian)
[2018-01-20 14:23] LABS: HEMOGLOBIN 14.8 g/dL (12.0-18.0); MEAN CELL VOLUME 86.1 fl (80.0-94.0); MEAN CORPUSCULAR HEMOGLOBIN 29.4 pg (27.0-31.0); MEAN CORPUSCULAR HGB CONC 34.1 g/dL (33.0-37.0); RBC 5.04 Mil/uL (4.40-5.90); RED CELL DISTRIBUTION WIDTH 13.5 % (11.5-14.5); WHITE BLOOD COUNT 11.7 K/uL (4.8-10.8)
[2018-01-20 14:38] LABS: ALB/GLOB RATIO 1.2 (1.0-2.1); ALBUMIN 3.9 g/dL (3.5-5.0); ALT/SGPT 33 U/L (21-72); AST/SGOT 17 U/L (17-59); BLOOD UREA NITROGEN 8 mg/dl (9-20); CALCIUM 9.2 mg/dL (8.4-10.2); GFR AFRICAN-AMERICAN > 60; GFR NON-AFRICAN AMERICAN > 60
--- NOTE | 2018-01-20 14:57 | RAD ---
HISTORY: Chest pressure COMPARISON: Chest radiograph dated 12/08/2017. FINDINGS: LUNGS: Re- demonstration of azygos fissure. No active pulmonary disease. PLEURA: Stable mild elevation of the right hemidiaphragm. No significant pleural effusion identified, no pneumothorax apparent. CARDIOVASCULAR: Normal. OSSEOUS STRUCTURES: No significant abnormalities. VISUALIZED UPPER ABDOMEN: Normal. OTHER FINDINGS: None. IMPRESSION: No active disease.
[2018-01-20 19:12] LABS: SQUAMOUS EPITHIAL < 1 /hpf (0-5); URINE BILIRUBIN NEGATIVE (NEGATIVE); URINE BLOOD NEGATIVE (NEGATIVE); URINE CLARITY SLIGHTY-CLOUDY (Clear); URINE COLOR YELLOW (YELLOW); URINE GLUCOSE (UA) NEG (Normal); URINE LEUKOCYTE ESTERASE NEG Leu/uL (Negative); URINE PROTEIN NEGATIVE (NEGATIVE); URINE UROBILINOGEN 0.2-1.0 mg/dL (0.2-1.0)
[2018-01-20 19:20] LABS: BARBITURATES, UR NEGATIVE (NEGATIVE); BENZODIAZEPINES, UR NEGATIVE (NEGATIVE); OPIATES, UR NEGATIVE (NEGATIVE); PHENCYCLIDINE, UR NEGATIVE (NEGATIVE)
--- NOTE | 2018-01-21 01:38 | ED PDOC ---
- Laboratory Results Result Diagrams: 01/20/18 14:10 01/20/18 14:10 - ECG O2 Sat by Pulse Oximetry: 96 <Alyce Nava - Last Filed: 01/21/18 05:53> - Laboratory Results Result Diagrams: 01/20/18 14:10 01/20/18 14:10 <Magno Amin - Last Filed: 01/21/18 06:59> - Progress ED Course And Treament: [place] [facility] [place] [place] screen[place] Accepted by Dr. fung (Alyce Nava) Medical Decision Making <Alyce Nava - Last Filed: 01/21/18 05:53> <Magno Amin - Last Filed: 01/21/18 06:59> Medical Decision Making: Patient transferred in stable condition, well appearance. (Magno Amin) Disposition - POA Present On Arrival: None - Disposition Disposition: Other Institution Disposition Time: 05:53 <Alyce Nava - Last Filed: 01/21/18 05:53> <Magno Amin - Last Filed: 01/21/18 06:59> - Clinical Impression Clinical Impression: Encounter for psychiatric assessment - Disposition Condition: STABLE Forms: [facility] [employer] [facility] (German)
[2018-01-21 06:03] VITALS: BP 123/51; PULSE 75; RESP 20; O2SAT 100
--- NOTE | 2018-01-21 12:22 | CARD ---
APPROVED REPORT EKG Measurement Heart [id number] <Conclusion> Normal sinus rhythm Normal ECG
== END 2018-01-21 06:14 | disposition short-term general hospital (02) ==
LOC: H.ER 10:48
DX: F20.9 Schizophrenia, unspecified (principal); F31.9 Bipolar disorder, unspecified; F41.9 Anxiety disorder, unspecified; F17.200 Nicotine dependence, unspecified, uncomplicated
CPT/HCPCS: 71045; 80053; 80320; 80324; 80345; 80346; 80349; 80353; 80358; 80361; 81003; 83992; 85027; 93005; 96372; 99283; J2060

== ENCOUNTER 2018-04-28 10:00 | Inpatient (IN) | payer MEDICAID ==
[2018-04-28 10:00] VITALS: BMI 27.4
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
[2018-04-28 11:57] LABS: BASO # 0.1 K/uL (0.0-0.2); BASO % 1.2 % (0.0-2.0); EOS # 0.3 K/uL (0.0-0.7); EOS % 2.6 % (0.0-4.0); HEMOGLOBIN 15.6 g/dL (12.0-18.0); LYMPH # 3.3 K/uL (1.0-4.3); LYMPH % 32.1 % (20.0-40.0); MEAN CELL VOLUME 86.7 fl (80.0-94.0); MEAN CORPUSCULAR HEMOGLOBIN 29.6 pg (27.0-31.0); MEAN CORPUSCULAR HGB CONC 34.1 g/dL (33.0-37.0); MONO # 0.4 K/uL (0.0-0.8); MONO % 4.3 % (0.0-10.0); NEUT # 6.1 K/uL (1.8-7.0); NEUT % 59.8 % (50.0-75.0); NRBC % 0.2 % (0.0-0.0); RBC 5.26 Mil/uL (4.40-5.90); RED CELL DISTRIBUTION WIDTH 14.4 % (11.5-14.5); WHITE BLOOD COUNT 10.2 K/uL (4.8-10.8)
[2018-04-28 12:13] LABS: ALB/GLOB RATIO 1.4 (1.0-2.1); ALT/SGPT 35 U/L (21-72); AST/SGOT 22 U/L (17-59); BLOOD UREA NITROGEN 6 mg/dl (9-20); CALCIUM 9.1 mg/dL (8.4-10.2); GFR AFRICAN-AMERICAN > 60; GFR NON-AFRICAN AMERICAN > 60
[2018-04-28 17:49] LABS: URINE BACTERIA RARE (<OCC); URINE BILIRUBIN NEGATIVE (NEGATIVE); URINE BLOOD NEGATIVE (NEGATIVE); URINE CLARITY CLEAR (Clear); URINE COLOR YELLOW (YELLOW); URINE GLUCOSE (UA) NEG (Normal); URINE LEUKOCYTE ESTERASE NEG Leu/uL (Negative); URINE PROTEIN NEGATIVE (NEGATIVE); URINE UROBILINOGEN 0.2-1.0 mg/dL (0.2-1.0)
[2018-04-28 18:16] LABS: BENZODIAZEPINES, UR NEGATIVE (NEGATIVE)
[2018-04-28 18:18] LABS: BARBITURATES, UR NEGATIVE (NEGATIVE); OPIATES, UR NEGATIVE (NEGATIVE); PHENCYCLIDINE, UR NEGATIVE (NEGATIVE)
--- NOTE | 2018-04-28 23:38 | ED PDOC ---
- Laboratory Results Result Diagrams: 04/28/18 11:40 04/28/18 11:40 - ECG O2 Sat by Pulse Oximetry: 97 - Progress ED Course And Treament: Case endorsed to program writer from Dar AWAN pending [facility] [place] 21:30 Patient resting comfortably 23:00 Patient evaluated by [facility] [place]; does not meet criteria for commitment As per Dr. Duarte, patient to be admitted to [facility] Medical Decision Making Medical Decision Making: Patient medically stable for psych admission Disposition - Clinical Impression Clinical Impression: Schizophrenia - POA Present On Arrival: None - Disposition Disposition: Admitted as In-Patient Disposition Time: 23:37 Condition: STABLE
[2018-04-29 02:15] VITALS: RESP 18; O2SAT 97
[2018-04-29] MEDS ORDERED: Magnesium Hydroxide Susp 30 ml UD PO PRN (02:49)
[2018-04-29] MEDS ORDERED: Alum-Mag Hydrox-Simethicone Susp (30 mL) PO PRN (02:49)
[2018-04-29 03:45] VITALS: PULSE 61
--- NOTE | 2018-04-29 04:42 | PCM.BM ---
Treatment Plan Problems - Problems identified on initial assessmt Altered thought process Date Initiated: 04/29/18 Time Initiated: 04:40 Assessment reference: NA Status: Active Medication Nonadherence Date Initiated: 04/29/18 Time Initiated: 04:41 Assessment reference: NA Status: Active Treatment assets and liabiliti Patient Assests: adapts well, cooperative, self-reliant, physically healthy Patient Liabilities: substance abuse - Milieu Protocol Maintain good personal hygiene: daily Encourage regular showers, daily Assist patient to perform ADL's, every shift Remind patient to perform daily oral care Conduct patient checks and document Observation sheet: Q15 minutes Maintain personal safety: every shift Educate patient to report safety concerns to staff, every shift Monitor environment for contraband/sharps Medication safety: Monitor for expected outcome, potential side effects: every shift, Assess barriers to learning: every shift, Assess readiness for medication education: every shift
[2018-04-29 07:33] LABS: HDL CHOLESTEROL 31 MG/DL (30-70)
--- NOTE | 2018-04-29 07:41 | CARD ---
APPROVED REPORT Date of service: 04/28/2018 <Conclusion> Normal sinus rhythm with sinus arrhythmia Normal ECG
[2018-04-29 07:44] LABS: LDL CHOLESTEROL 97 mg/dL (0-129)
--- NOTE | 2018-04-29 08:34 | RAD ---
Date of service: 04/28/2018 PROCEDURE: CHEST RADIOGRAPH, 1 VIEW HISTORY: med screening COMPARISON: 01/20/2018. FINDINGS: LUNGS: The lungs are well inflated and clear. PLEURA: No pneumothorax or pleural fluid seen. CARDIOVASCULAR: Normal. OSSEOUS STRUCTURES: No significant abnormalities. VISUALIZED UPPER ABDOMEN: Normal. OTHER FINDINGS: None. IMPRESSION: No active pulmonary disease.
[2018-04-29] MEDS ORDERED: DiphenhydrAMINE 50 mg/ml Inj IM PRN (08:46)
[2018-04-29 09:18] VITALS: BP 109/69; TEMP 98.1
--- NOTE | 2018-04-29 10:55 | PCM.PSYCH ---
Initial Psychiatric Evaluation - Initial Psychiatric Evaluation Type of Admission: Voluntary Legal Status: Capacity Chief Complaint (in patient's own words): I want to leave it is my room mate who needs to be here Patient's Reaction to Hospitalization: pt requesting to be discharged History of Present Illness and Precipitating Events: pt is a 42ys old male with long history of bipolar disorder and alcohol abuse, pt was brought to ER by police called by the room mate and his mother as pt was agitated and exhibiting disorganized behavior In the ER patient was noted to be disorganized, disrobing self, exposing self, unresponsive to the questions, pt was screened for involuntary admission but not accepted On the unit pt is presenting with paranoid delusions, stated that both his mother and room mate are against him and trying to get him in trouble, pt loud irritable , grandiose and sexually preoccupied , no insight into his illness, refusing to be placed on depakote, trileptal or any other mood stabilizer pt has no insight into his illness signed 48 hours notice requesting to be discharged Current Medications: Active Medications Generic Name Dose Route Start Last Admin Trade Name Freq PRN Reason Stop Dose Admin Acetaminophen 650 mg 04/29/18 02:49 Tylenol 325mg Tab PO Q4 PRN Pain, moderate (4-7) Al Hydrox/Mg Hydrox/Simethicone 30 ml 04/29/18 02:49 Maalox Plus 30 Ml PO Q4 PRN Dyspepsia Chlorpromazine 50 mg 04/29/18 10:15 Thorazine PO Q6 PRN Agitation Chlorpromazine 50 mg 04/29/18 10:16 Thorazine IM Q6 PRN Agitation Clonazepam 0.25 mg 04/29/18 13:00 Klonopin PO TID SHEA Diphenhydramine HCl 50 mg 04/29/18 02:49 Benadryl PO HS PRN Insomnia Diphenhydramine HCl 50 mg 04/29/18 08:46 Benadryl IM Q6 PRN Allergy symptoms Lorazepam 1 mg 04/29/18 02:49 Ativan PO Q8 PRN Anxiety/Agitation Magnesium Hydroxide 30 ml 04/29/18 02:49 Milk Of Magnesia PO HS PRN Constipation Quetiapine Fumarate 200 mg 04/29/18 22:00 Seroquel PO HS SHEA Quetiapine Fumarate 100 mg 04/30/18 09:00 Seroquel PO DAILY [facility] Past Psychiatric History - Past Psychiatric History Explanation of prior treatment: pt has multiple inpatient psychiatric hospitalizations history of non complianc ewith medications or follow up History of ETOH/Drug Use: history of alcohol abuse Pertinent Medical Hx (Current Medical&Sleep Prob, Allergies): Allergies Allergy/AdvReac Type Severity Reaction Status Date / Time divalproex sodium Allergy RASH Verified 01/20/18 11:02 [From Depakote] haloperidol [From Haldol] Allergy RASH Verified 01/20/18 11:02 haloperidol lactate Allergy RASH Verified 01/20/18 11:02 [From Haldol] paliperidone [From Invega] Allergy SHORTNESS Verified 01/20/18 11:02 OF BREATH risperidone [From Risperdal] Allergy RASH Verified 01/20/18 11:02 QUEtiapine [Seroquel] 100 mg PO DAILY 12/09/17 Clonazepam [Klonopin] 0.5 mg PO Q8 04/28/18 [place] Carbonate [[place] 300MG] 300 mg PO HS 04/28/18 [place] Carbonate [[place] Carbon[place] 300MG] 600 mg PO QAM 04/28/18 Nicotine 21 mg/24 hr [Nicoderm Cq] 1 patch TD DAILY 04/28/18 QUEtiapine [Seroquel] 200 mg PO HS 04/28/18 Mental Status Examination - Personal Presentation Personal Presentation: Looks stated age - Affect Affect: Broad Additional comments: euphoric , labile , agitated - Motor Activity Motor Activity: Psychomotor Agitation - Reliability in Providing Information Reliability in Providing Information: Poor, due to alteration in thoughts, Poor , due to altered mood - Speech Speech: Disorganized - Mood Mood: Anxious, Euphoric - Formal Thought Process Formal Thought Process: Paranoia, Loosening of associations, Circumstantial Additional comments: flight of ideas - Hallucinations/Delusions Delusions: Granduer, Persecution - Obsessions/Compulsions Obsessions: No Compulsions: No - Cognitive Functions Orientation: Person, Place - Risk Risk: Diminished functioning - Strength & Assets Inventory Strength & Assets Inventory: Life experience - Limitations Additional comments: poor compliance DSM 5 DX - DSM 5 DSM 5 Diagnosis: bipolar disorder MRE manic severe with psychotic features - Recommended/Plan of Treatment Treatment Recommendations and Plan of Treatment: pt refusing depakote, refusing trileptal reporting he is allergic to zyprexa, yet unable to state the allergic reaction pt will be started on seroquel 100mg daily and 200mg qhs klonopin 0.25mg tid pt signed 48 hour notice with partial compliance with medications , no insight into illness continues to be paranoid, labile , manic with disorganized thought process pt will be referred for screening again for involuntary admission to ensure medication stabilization
--- NOTE | 2018-04-29 15:55 | CP.PCM.CON ---
History of Present Illness - History of Present Illness History of Present Illness: 42Y/O old male with PMHx of bipolar disorder, anxiety, depression, schizophrenia and alcohol abuse brought to ER by police due to disorganized behavior. Patient seen and examined at at bedside today. Patient drowsy and sleepy because he just recently received Klonopin a while ago. Speech is slurry but responding to questions with eyes close. Denies any headache, chest pain, dizzniness, shortness of breath, nausea, vomiting, diarrhea, urinary symptoms or back pain. In ED CXR and EKG done are unremarkable. CBC CMP, other labs reviewed are WNL except A1c of 5.8 and TG 262. Psychiatry: Dr. Pichardo PMHx: bipolar disorder, anxiety, depression, schizophrenia, alcohol abuse PSHx: Tonsillectomy Hospitalizations: Multiple ER visits due to psychiatric condition and alcohol abuse Family history: Unknown Social history: + smoking, alcohol bur denies using drugs. History obtained from patient and medical records. Review of Systems - Constitutional Constitutional: absent: Fever, Headache, Weakness - EENT Eyes: absent: Blurred Vision Ears: absent: Decreased Hearing, Ear Pain Nose/Mouth/Throat: absent: Nasal Discharge, Change in Voice, Hoarsness - Cardiovascular Cardiovascular: absent: Chest Pain, Dyspnea, Edema, Palpitations - Respiratory Respiratory: absent: Cough, Wheezing, Chest Congestion - Gastrointestinal Gastrointestinal: absent: Abdominal Pain, Diarrhea, Nausea, Vomiting - Genitourinary Genitourinary: absent: Dysuria - Integumentary Integumentary: Dry Skin. absent: Acne, Rash, Swelling - Neurological Neurological: absent: Headaches, Loss of Vision, Tingling, Weakness - Psychiatric Psychiatric: Behavioral Changes Past Patient History - Infectious Disease Hx of Infectious Diseases: None - Tetanus Immunizations Tetanus Immunization: Unknown - Past Medical History & Family History Past Medical History?: No - Past Social History Smoking Status: Smoker Currrent Status Unknown Alcohol: None Drugs: Denies - CARDIAC Hx Cardiac Disorders: No Hx Hypertension: No - PULMONARY Hx Respiratory Disorders: No Hx Tuberculosis: No - NEUROLOGICAL Hx Neurological Disorder: No Hx Seizures: No - HEENT Hx HEENT Problems: No - RENAL Hx Chronic Kidney Disease: No - ENDOCRINE/METABOLIC Hx Endocrine Disorders: No - HEMATOLOGICAL/ONCOLOGICAL Hx Blood Disorders: No Hx Human Immunodeficiency Virus (HIV): No - INTEGUMENTARY Hx Dermatological Problems: No - MUSCULOSKELETAL/RHEUMATOLOGICAL Hx Musculoskeletal Disorders: No - GASTROINTESTINAL Hx Gastrointestinal Disorders: No - GENITOURINARY/GYNECOLOGICAL Hx Genitourinary Disorders: No Hx Sexually Transmitted Disorders: No - PSYCHIATRIC Hx Substance Use: No - SURGICAL HISTORY Hx Tonsillectomy: Yes - ANESTHESIA Hx Anesthesia: Yes Hx Anesthesia Reactions: No Meds Allergies/Adverse Reactions: Allergies Allergy/AdvReac Type Severity Reaction Status Date / Time divalproex sodium Allergy RASH Verified 01/20/18 11:02 [From Depakote] haloperidol [From Haldol] Allergy RASH Verified 01/20/18 11:02 haloperidol lactate Allergy RASH Verified 01/20/18 11:02 [From Haldol] paliperidone [From Invega] Allergy SHORTNESS Verified 01/20/18 11:02 OF BREATH risperidone [From Risperdal] Allergy RASH Verified 01/20/18 11:02 - Medications Medications: Current Medications Acetaminophen (Tylenol 325mg Tab) 650 mg PO Q4 PRN PRN Reason: Pain, moderate (4-7) Al Hydrox/Mg Hydrox/Simethicone (Maalox Plus 30 Ml) 30 ml PO Q4 PRN PRN Reason: Dyspepsia Chlorpromazine (Thorazine) 50 mg PO Q6 PRN PRN Reason: Agitation Chlorpromazine (Thorazine) 50 mg IM Q6 PRN PRN Reason: Agitation Clonazepam (Klonopin) 0.25 mg PO TID [facility] Last Admin: 04/29/18 13:56 Dose: 0.25 mg Diphenhydramine HCl (Benadryl) 50 mg PO HS PRN PRN Reason: Insomnia Diphenhydramine HCl (Benadryl) 50 mg IM Q6 PRN PRN Reason: Allergy symptoms Lorazepam (Ativan) 1 mg PO Q8 PRN PRN Reason: Anxiety/Agitation Magnesium Hydroxide (Milk Of Magnesia) 30 ml PO HS PRN PRN Reason: Constipation Quetiapine Fumarate (Seroquel) 200 mg PO HS SHEA Quetiapine Fumarate (Seroquel) 100 mg PO DAILY [facility] Physical Exam - Constitutional Appears: Well, No Acute Distress Additional comments: Lying in bed, Poor eye contact, drowsy - Head Exam Head Exam: ATRAUMATIC, NORMAL INSPECTION, NORMOCEPHALIC - ENT Exam ENT Exam: Mucous Membranes Moist - Respiratory Exam Respiratory Exam: Clear to Auscultation Bilateral, Rales, Rhonchi, Wheezes, NORMAL BREATHING PATTERN. absent: Chest Wall Tenderness - Cardiovascular Exam Cardiovascular Exam: REGULAR RHYTHM, +S1, +S2. absent: Systolic Murmur - GI/Abdominal Exam GI & Abdominal Exam: Normal Bowel Sounds, Soft. absent: Distended, Firm, Guarding - Extremities Exam Extremities exam: Negative for: pedal edema, tenderness - Back Exam Back exam: absent: CVA tenderness (L), CVA tenderness (R) - Neurological Exam Neurological exam: Oriented x3 - Skin Skin Exam: Dry, Intact, Normal Color Additional comments: On exposed area Results - Vital Signs Recent Vital Signs: Last Vital Signs Temp 98.1 F 04/29/18 09:17 Pulse 61 04/29/18 09:17 Resp 18 04/29/18 09:17 BP 109/69 04/29/18 09:17 Pulse Ox 97 04/29/18 02:14 - Labs Result Diagrams: 04/28/18 11:40 04/28/18 11:40 Labs: Laboratory Results - last 24 hr 04/28/18 04/28/18 04/29/18 17:22 17:22 06:20 Hemoglobin A1c Triglycerides 262 H D Cholesterol 175 LDL Cholesterol Direct 97 HDL Cholesterol 31 Urine Color Yellow Urine Clarity Clear Urine pH 6.0 Ur Specific [place] 1.008 Urine Protein Negative Urine Glucose (UA) Neg Urine Ketones Trace Urine Blood Negative Urine Nitrate Negative Urine Bilirubin Negative Urine Urobilinogen 0.2-1.0 Ur Leukocyte Esterase Neg Urine RBC (Auto) 1 Urine Microscopic WBC 2 Urine Bacteria Rare Urine Opiates Screen Negative Urine Methadone Screen Negative Ur Barbiturates Screen Negative Ur Phencyclidine Scrn Negative Ur Amphetamines Screen Negative U Benzodiazepines Scrn Negative U Oth Cocaine Metabols Negative U Cannabinoids Screen Negative 04/29/18 06:20 Hemoglobin A1c 5.8 Triglycerides Cholesterol LDL Cholesterol Direct HDL Cholesterol Urine Color Urine Clarity Urine pH Ur Specific [place] Urine Protein Urine Glucose (UA) Urine Ketones Urine Blood Urine Nitrate Urine Bilirubin Urine Urobilinogen Ur Leukocyte Esterase Urine RBC (Auto) Urine Microscopic WBC Urine Bacteria Urine Opiates Screen Urine Methadone Screen Ur Barbiturates Screen Ur Phencyclidine Scrn Ur Amphetamines Screen U Benzodiazepines Scrn U Oth Cocaine Metabols U Cannabinoids Screen Assessment & Plan - Assessment and Plan (Free Text) Assessment: 42Y/O old male with PMHx of bipolar disorder, anxiety, depression, schizophrenia and alcohol abuse brought to ER by police due to disorganized behavior. Denies CP, SOB, nausea, vomiting, diarrhea, headache, dizziness, urinary symptoms. Plan: Bipolar disorder/Psychiatric illness - Manage as per psych Prediabetes - A1c 5.8 - Random Glucose: 173 - Follow up as an outpatient. Hypertriglyceridemia - TG 262, Total cholesterol: 175 - Heart healthy diet - ASCVD risk 4.6%, No indication of statins at this time - F/U as an outpatient
== END 2018-04-29 23:45 | DRG 430 ==
LOC: H.ER 10:00 → UNDOADMIN 15:37 → H.ERHOLD 15:37 → H.PSYCH 04-29 02:30
PROVIDERS: ADMIT Psychiatry & Neurology Psychiatry; ATTEND Psychiatry & Neurology Psychiatry
PROC: GZHZZZZ Group Psychotherapy (ICD-10-PCS; principal; 2018-04-28)
PROC: GZ58ZZZ Individual Psychotherapy, Cognitive-Behavioral (ICD-10-PCS; 2018-04-28)
DX: F31.2 Bipolar disorder, current episode manic severe with psychotic features (principal); F10.10 Alcohol abuse, uncomplicated; F41.9 Anxiety disorder, unspecified; R73.03 Prediabetes; E78.1 Pure hyperglyceridemia

== ENCOUNTER 2018-09-01 19:27 | Emergency (ER) | payer MEDICAID ==
[2018-09-01 19:27] VITALS: BMI 27.4
--- NOTE | 2018-09-01 21:29 | ED PDOC ---
HPI: Psych/Substance Abuse Time Seen by Provider: 09/01/18 20:04 Chief Complaint (Nursing): Psychiatric Evaluation Chief Complaint (Provider): Psychiatric Evaluation History Per: Patient History/Exam Limitations: no limitations Additional Complaint(s): Ash Rodriges is a 42 year old male with a past medical history of anxiety and bipolar disorder, who presents to the emergency department by mobile crisis for psychiatric evaluation. Patient has not been taking medications and roommates have said he has been having hallucinations and acting erratic. Patient was seen to have gown over his face and would not answer any questions. When asked questions, patient would "shake his finger", shrug his shoulder or nod his head. Patient nods his head yes to medical problems but does not state what. When asked why he refuses to answer and shrugs his shoulders. Patient was told he is getting a physical exam and allows a basic physical exam. He stats that his doctor and records are in the computer upon leaving the room. As provider exits the room, patient states he now endorses pain to entire body and has a fever. He denies any depression, hallucinations, or thoughts of suicide. PMD: Shandra Aragon Past Medical History Reviewed: Historical Data, Nursing Documentation, Vital Signs Vital Signs: Last Vital Signs Temp 98.7 F 09/01/18 19:31 Pulse 99 H 09/01/18 19:31 Resp 16 09/01/18 19:31 BP 130/77 09/01/18 19:31 Pulse Ox 98 09/01/18 19:31 - Medical History PMH: Anxiety, Bipolar Disorder, Depression, Schizophrenia Denies: Diabetes, Hepatitis, HIV, HTN, Chronic Kidney Disease, Seizures, Sexually Transmitted Disease - Surgical History Surgical History: Tonsillectomy - Family History Family History: States: Unknown Family Hx - Immunization History Hx Tetanus Toxoid Vaccination: No Hx Influenza Vaccination: No Hx Pneumococcal Vaccination: No - Home Medications Home Medications: Ambulatory Orders Medication Instructions Recorded QUEtiapine [Seroquel] 100 mg PO DAILY 12/09/17 Clonazepam [Klonopin] 0.5 mg PO Q8 04/28/18 [place] Carbonate [[place] 300 mg PO HS 04/28/18 Carbonate 300MG] [place] Carbonate [[place] 600 mg PO QAM 04/28/18 Carbonate 300MG] QUEtiapine [Seroquel] 200 mg PO HS 04/28/18 RX: Nicotine 21 mg/24 hr [Nicoderm 1 patch TD DAILY 04/28/18 Cq] - Allergies Allergies/Adverse Reactions: Allergies Allergy/AdvReac Type Severity Reaction Status Date / Time divalproex sodium Allergy RASH Verified 09/01/18 19:31 [From Depakote] haloperidol [From Haldol] Allergy RASH Verified 09/01/18 19:31 haloperidol lactate Allergy RASH Verified 09/01/18 19:31 [From Haldol] paliperidone [From Invega] Allergy SHORTNESS Verified 09/01/18 19:31 OF BREATH risperidone [From Risperdal] Allergy RASH Verified 09/01/18 19:31 Review of Systems Constitutional: Positive for: Fever, Other (whole body pain) Psych: Negative for: Suicidal ideation Physical Exam - Reviewed Nursing Documentation Reviewed: Yes Vital Signs Reviewed: Yes - Physical Exam Appears: Positive for: Well (no signs of trauma) Head Exam: Positive for: ATRAUMATIC Cardiovascular/Chest: Positive for: Regular Rate, Rhythm. Negative for: Murmur Respiratory: Positive for: Normal Breath Sounds. Negative for: Respiratory Distress Extremity: Positive for: Other (several small scabs to the legs, appear as insect bites (no signs of infection)) Neurologic/Psych: Positive for: Alert - Laboratory Results Result Diagrams: 09/01/18 21:36 09/01/18 21:36 - ECG O2 Sat by Pulse Oximetry: 98 (RA) Pulse Ox Interpretation: Normal Medical Decision Making Medical Decision Making: Time: 2116 A/P: * Patient is here for crisis evaluation * crisis consultation is placed. * Patient was given Tylenol for pain * Reevaluation * 1:1 observation. Plan: --EKG --BMP --Crisis evaluation --CBC with differential --Chest x-ray --Tylenol 650 mg PO Scribe Attestation: Documented by Christian Lazaro , acting as a scribe for Christa Underwood MD. Provider Scribe Attestation: All medical record entries made by the Scribe were at my direction and personally dictated by me. I have reviewed the chart and agree that the record accurately reflects my personal performance of the history, physical exam, medical decision making, and the department course for this patient. I have also personally directed, reviewed, and agree with the discharge instructions and disposition. 2:11 Pt with elevated WBC without left shift. Pt with normal CXR and EKG. Pt is medically optimized for transfer to psychiatry. Pt accepted to [facility] and will be transfered once a bed becomes available. Pt remains on one to one evaluation and is sleeping. 700 Pt remains medically stable. Accepted for involuntary psychiatric admission at [facility] pending bed availability. Pt to be signed out to Dr. Cm. Disposition - Clinical Impression Clinical Impression: Bipolar disorder - Disposition Disposition: Transfer of Care Disposition Time: 07:15 (Dr. Cm pending transfer to [facility]) Condition: STABLE Forms: [employer] (Swedish)
[2018-09-01 21:43] LABS: BASO # 0.1 K/uL (0.0-0.2); BASO % 0.9 % (0.0-2.0); EOS # 0.1 K/uL (0.0-0.7); EOS % 0.5 % (0.0-4.0); HEMOGLOBIN 15.2 g/dL (12.0-18.0); LYMPH # 3.1 K/uL (1.0-4.3); LYMPH % 21.5 % (20.0-40.0); MEAN CELL VOLUME 86.8 fl (80.0-94.0); MEAN CORPUSCULAR HEMOGLOBIN 28.5 pg (27.0-31.0); MEAN CORPUSCULAR HGB CONC 32.8 g/dL (33.0-37.0); MEAN PLATELET VOLUME 9.2 fl (7.2-11.7); MONO # 0.7 K/uL (0.0-0.8); MONO % 4.9 % (0.0-10.0); NEUT # 10.3 K/uL (1.8-7.0); NEUT % 72.2 % (50.0-75.0); NRBC % 0.1 % (0.0-0.0); RBC 5.33 Mil/uL (4.40-5.90); RED CELL DISTRIBUTION WIDTH 14.4 % (11.5-14.5); WHITE BLOOD COUNT 14.3 K/uL (4.8-10.8)
[2018-09-01 21:58] LABS: BLOOD UREA NITROGEN 8 mg/dl (9-20); CALCIUM 9.5 mg/dL (8.4-10.2); GFR NON-AFRICAN AMERICAN > 60
[2018-09-01 22:42] LABS: BARBITURATES, UR NEGATIVE (NEGATIVE); BENZODIAZEPINES, UR NEGATIVE (NEGATIVE); OPIATES, UR NEGATIVE (NEGATIVE); PHENCYCLIDINE, UR NEGATIVE (NEGATIVE)
--- NOTE | 2018-09-02 06:59 | CARD ---
APPROVED REPORT Date of service: 09/02/2018 EKG Measurement Heart [id number] <Conclusion> Sinus bradycardia with sinus arrhythmia Otherwise normal ECG
--- NOTE | 2018-09-02 07:28 | ED PDOC ---
- Laboratory Results Result Diagrams: 09/01/18 21:36 09/01/18 21:36 - ECG O2 Sat by Pulse Oximetry: 97 Medical Decision Making Medical Decision Makinam received pending [facility] bed availability. Per RN he reportedly verbalized being on lithium, level added to labs Remains 1:1 Disposition - Clinical Impression Clinical Impression: Bipolar disorder - POA Present On Arrival: None - Disposition Disposition: Transfer of Care Disposition Time: 15:00 (\) Condition: STABLE Forms: [employer] (Korean) Handoff Comments: pending [facility] bed
--- NOTE | 2018-09-02 10:07 | CP.PCM.CON ---
History of Present Illness - History of Present Illness History of Present Illness: Psychiatry consult note CC: Leslye/ Bizarre behavior HPI: 42 yo male w/ h/o Bipolar Disorder, presents acutely decompensated, manic and psychotic in the context of non-compliance with medications. Patient A + O x 3. He is uncooperative with questions, answering "No" or "Never" to almost every question. He is currently refusing psychiatric treatment medications. He was screened and accepted for involuntary admission, pending transfer. Additional history from chart below: 42Y/O MALE SENT TO THIS ER BY MOBILE CRISIS DUE TO PT ACTIVELY HALLUCINATING, BEING PARANOID AND NONCOMPLIANT WITH HIS MEDICATION. PT REPORTED THAT HE IS FINE. HE REPORTED THAT HIS ROOMMATE IS THE CRAZY ONE. HE REPORTED THAT SHE WAS DIAGNOSED WITH THE RUBBERY SYNDROME AND THAT SHE DOES NOT TAKE HER MEDICATIONS. HE REPORTED THAT THERE IS NOTHING WRONG WITH HIM AND THAT HE TAKES HIS MEDICATIONS. HE REPORTED THAT THE BIGGEST PROBLEM IN HIS LIFE RIGHT NOW IS HIS ROOMMATE TRYING TO GET RID OF HIM SO THAT SHE CAN STEAL HIS STUFF AND ALL OF THE "FAGGOTS" THAT ARE ALWAYS STARING AT HIM. PT WAS ASKED WHAT MEDICATION HE IS BEING PRESCRIBED AND HIS RESPONSE WAS, "CHECK MY BLOOD AND FIND OUT FOR YOURSELF." AT THE TIME OF ASSESSMENT, PT WAS IRRIATED AND BILIGERENT WELL UNCOOPERATIVE. SPEECH WAS AT A NORMAL RATE AND TONE. PSYCHOMOTOR SKILLS WERE WITHIN NORMAL LIMITS. HIS THOUT PROCESS WAS ILLOGICAL. HIS THOUGHT CONTENT WAS INCLUSIVE OF PERCEPTUAL DELUSIONS NOTED ABOVE. PT DENIED SI/HI OR ANY THOUGTS OF SELF HARM. HE DENIED HAVING A/V/T HALLUCINATIONS; HOWEVER WAS OBSERVED TO BE INTERNALLY AND EXTERNALLY PREOCCUPIED. PT DISPLAYED OVERT SIGNS OF PSYCHOSIS. HE WAS NOT IN ACUTE CRISIS OR MENTAL DISTRESS. PT WAS ALERT AND ORIENTED X3. HE WAS POORLY GROOMED. HIS HYGIENE REQUIRED IMPROVEMENT; HOWEVER HE APPEARED TO BE IN FAIR PHYSICAL HEALTH. HIS GAIT WAS STEADY AND HIS POSTURE AND BALANCE REMAINED UNIMPAIRED. HE REPORTED NO SLEEP OR APPETITE DISTURBANCES. HIS MOOD WAS EVASIVE AND HIS AFFECT WAS LABILE. PT WAS GUARDED AND SUSPICIOUS. EYE CONTACT WAS POOR IN THAT THE PT WAS LAYING ON HIS STOMACH AND WOULD NOT LOOK AT THIS OFFICE REP. MEMORY WAS POOR. INSIGHT AND JUDGMENT WERE NOTED TO BE POOR. PT IS EXHIBITNG MARKED DETERIORATIONS IN HIS COGNITIVE ABILITIES TO FUNCTION AT THIS TIME. ALTHOUGH PT SCORED A 3 ON HIS SUICIDE ASSESSMENT, PT IS SIGNIFICANTLY DECOMPENSATED AND REPORTED THAT THERE IS NOTHING WRONG WITH HIM. HE IS REFUSING ADMISSION AT THIS TIME AND IS REQUESTING TO BE DISCHARGED. Impression: 42 yo male w/ h/o Bipolar Disorder w/ Psychotic Features vs Schizoaffective Disorder, needs acute inpatient psychiatric admission for treatment and stabilization. -[place] [facility] [place] Past Patient History - Infectious Disease Hx of Infectious Diseases: None - Tetanus Immunizations Tetanus Immunization: Unknown - Past Medical History & Family History Past Medical History?: No - Past Social History Smoking Status: Smoker Currrent Status Unknown - CARDIAC Hx Hypertension: No - PULMONARY Hx Tuberculosis: No - NEUROLOGICAL Hx Seizures: No - HEENT Hx HEENT Problems: No - RENAL Hx Chronic Kidney Disease: No - ENDOCRINE/METABOLIC Hx Endocrine Disorders: No - HEMATOLOGICAL/ONCOLOGICAL Hx Human Immunodeficiency Virus (HIV): No - INTEGUMENTARY Hx Dermatological Problems: No - MUSCULOSKELETAL/RHEUMATOLOGICAL Hx Musculoskeletal Disorders: No - GASTROINTESTINAL Hx Gastrointestinal Disorders: No - GENITOURINARY/GYNECOLOGICAL Hx Sexually Transmitted Disorders: No - PSYCHIATRIC Hx Anxiety: Yes Hx Bipolar Disorder: Yes Hx Depression: Yes Hx Schizophrenia: Yes - SURGICAL HISTORY Hx Tonsillectomy: Yes - ANESTHESIA Hx Anesthesia: Yes Hx Anesthesia Reactions: No Meds Allergies/Adverse Reactions: Allergies Allergy/AdvReac Type Severity Reaction Status Date / Time divalproex sodium Allergy RASH Verified 09/01/18 19:31 [From Depakote] haloperidol [From Haldol] Allergy RASH Verified 09/01/18 19:31 haloperidol lactate Allergy RASH Verified 09/01/18 19:31 [From Haldol] paliperidone [From Invega] Allergy SHORTNESS Verified 09/01/18 19:31 OF BREATH risperidone [From Risperdal] Allergy RASH Verified 09/01/18 19:31 Results - Vital Signs Recent Vital Signs: Last Vital Signs Temp 98.3 F 09/02/18 07:39 Pulse 64 09/02/18 07:25 Resp 20 09/02/18 07:25 BP 101/64 09/02/18 07:25 Pulse Ox 97 09/02/18 07:28 - Labs Result Diagrams: 09/01/18 21:36 09/01/18 21:36 Labs: Laboratory Results - last 24 hr 09/01/18 09/01/18 09/01/18 21:36 21:36 22:10 WBC 14.3 H RBC 5.33 Hgb 15.2 Hct 46.2 MCV 86.8 MCH 28.5 MCHC 32.8 L RDW 14.4 Plt Count 283 MPV 9.2 Neut % (Auto) 72.2 Lymph % (Auto) 21.5 [place] % (Auto) 4.9 Eos % (Auto) 0.5 Baso % (Auto) 0.9 Neut # (Auto) 10.3 H Lymph # (Auto) 3.1 [place] # (Auto) 0.7 Eos # (Auto) 0.1 Baso # (Auto) 0.1 Sodium 141 Potassium 4.8 Chloride 105 Carbon Dioxide 26 Anion Gap 15 BUN 8 L Creatinine 0.8 Est GFR ( Amer) > 60 Est GFR (Non-Af Amer) > 60 Random Glucose 90 Calcium 9.5 Urine Opiates Screen Negative Urine Methadone Screen Negative Ur Barbiturates Screen Negative Ur Phencyclidine Scrn Negative Ur Amphetamines Screen Negative U Benzodiazepines Scrn Negative [place] U Oth Cocaine Metabols Negative U Cannabinoids Screen Negative Alcohol, Quantitative 09/01/18 09/02/18 23:03 07:35 WBC RBC Hgb Hct MCV MCH MCHC RDW Plt Count MPV Neut % (Auto) Lymph % (Auto) [place] % (Auto) Eos % (Auto) Baso % (Auto) Neut # (Auto) Lymph # (Auto) [place] # (Auto) Eos # (Auto) Baso # (Auto) Sodium Potassium Chloride Carbon Dioxide Anion Gap BUN Creatinine Est GFR ( Amer) Est GFR (Non-Af Amer) Random Glucose Calcium Urine Opiates Screen Urine Methadone Screen Ur Barbiturates Screen Ur Phencyclidine Scrn Ur Amphetamines Screen U Benzodiazepines Scrn Seama 0.3 L U Oth Cocaine Metabols U Cannabinoids Screen Alcohol, Quantitative < 10
--- NOTE | 2018-09-02 10:18 | RAD ---
Date of service: 09/01/2018 HISTORY: possible admission COMPARISON: 04/28/2018. FINDINGS: LUNGS: The lungs are well inflated and clear. PLEURA: No pleural effusions or pneumothorax. CARDIOVASCULAR: The heart is normal in size. No aortic atherosclerotic calcification present. OSSEOUS STRUCTURES: Within normal limits for the patient's age. VISUALIZED UPPER ABDOMEN: Normal. OTHER FINDINGS: None. IMPRESSION: No active pulmonary disease.
--- NOTE | 2018-09-02 15:29 | ED PDOC ---
- Laboratory Results Result Diagrams: 09/01/18 21:36 09/01/18 21:36 - ECG O2 Sat by Pulse Oximetry: 97 Medical Decision Making Medical Decision Making: Time: 1500 --Patient endorsed to provider pending [facility] bed availability. 17:13 --Patient will be transferred to [facility] pt revaluated, stable and comfrotable in no distress. ----- Scribe Attestation: Documented by Wendy Aguilar, acting as a scribe for Sherrie Parker MD. Provider Scribe Attestation: All medical record entries made by the Scribe were at my direction and personally dictated by me. I have reviewed the chart and agree that the record accurately reflects my personal performance of the history, physical exam, medical decision making, and the department course for this patient. I have also personally directed, reviewed, and agree with the discharge instructions and disposition. Disposition - Clinical Impression Clinical Impression: Bipolar disorder - POA Present On Arrival: None - Disposition Disposition: Other Institution ([facility]) Disposition Time: 17:13 Condition: STABLE Forms: [employer] (Telugu)
[2018-09-02 16:30] VITALS: BP 108/67; PULSE 65; RESP 18; TEMP 98
[2018-09-02 17:23] VITALS: O2SAT 97
== END 2018-09-02 18:34 | disposition short-term general hospital (02) ==
LOC: H.ER 19:27
DX: F31.9 Bipolar disorder, unspecified (principal); Z91.14 Patient's other noncompliance with medication regimen; F20.9 Schizophrenia, unspecified; F41.9 Anxiety disorder, unspecified